=== PATIENT | male | born 1955 | race Caucasian/White ===

== ENCOUNTER 2017-11-21 18:42 | Emergency (ER) | payer OTHER ==
[2017-11-21] MEDS ORDERED: Adacel (T-DAP) 0.5 ML VIAL ONE (19:31)
[2017-11-21] MEDS ORDERED: Lidocaine 1% (PF) 30 ML VIAL ONE (19:36)
[2017-11-21] MEDS ORDERED: Bacitracin Zinc 1 Packet ONE (19:36)
[2017-11-21] MEDS ORDERED: Ketorolac Tromethamine 30 MG/ML VIAL ONE (19:39)
== END 2017-11-21 21:26 | disposition home or self-care (01) ==
LOC: ERS 18:42
DX: S61.412A Laceration without foreign body of left hand, initial encounter (principal); N40.0 Benign prostatic hyperplasia without lower urinary tract symptoms; E78.5 Hyperlipidemia, unspecified; I10 Essential (primary) hypertension; Z79.899 Other long term (current) drug therapy; W26.1XXA Contact with sword or dagger, initial encounter
CPT/HCPCS: 12002; 90471; 90715; 96372; J1885; J2001

== ENCOUNTER → 2017-11-26 | Day surgery (SDC) | payer OTHER ==
[~2017-11-26] MED LIST: Bacitracin Zinc Ointment 30 gm TUBE ONE; Betamet Acet/Betamet Na Ph 30 MG/5 ML VIAL ONE; Bupivacaine PF 0.5% 30 ML VIAL ONE; Clindamycin/D5W 600 mg/50 ml Premix Bag ONE; Dexamethasone 20 MG/5 ML VIAL ONE; Fentanyl 250 MCG/5 ML VIAL ONE; HYDROcodone/Acetaminophen 5/325 mg Tablet ONE; Lidocaine 1% PF 5 ML VIAL ONE; Midazolam HCl 2 mg/2 ml Vial ONE; PROPOFOL 200 MG/20 ML VIAL ONE; Sodium Chloride 0.9% 10 ML ONE
[2017-11-26 17:35] LABS: #Eosinphils 0.1 thou/uL (0.0-0.7); #Monocytes 0.6 thou/uL (0.11-0.59); #Neutrophils 2.9 thou/uL (1.40-6.50); %Basophils 0.2 % (0.0-1.0); %Eosinophils 2.8 % (0.0-10.0); %Lymphocytes 21.3 % (21.0-51.0); %Monocytes 13.5 % (0.0-10.0); %Neutrophils 62.3 % (42.0-75.0); Hemoglobin 14.5 g/dL (14.0-18.0); Mean Corpuscular HGB CONC 33.6 g/dL (32.0-36.0); Mean Corpuscular Hemoglobin 32.3 pg (27.0-31.0); Mean Corpuscular Volume 96.2 fl (80.0-94.0); Mean Platelet Volume 8.2 fL (7.4-10.4); Platelet Count 74 thou/uL (130-400); RBC Distribution Width 14.8 % (11.5-14.5); Red Blood Cell (RBC) Count 4.49 mill/uL (4.70-6.10); White Blood Cell (WBC) Count 4.7 thou/uL (4.8-10.8)
--- NOTE | 2017-11-27 13:51 | OP ---
DATE OF PROCEDURE: 11/26/2017 PREOPERATIVE DIAGNOSES: 1. Left fifth pollicis longus laceration. 2. Left extensor pollicis brevis laceration. FINDINGS: 1. 100% extensor pollicis brevis laceration with minimal retraction. 2. 25% extensor pollicis longus laceration without retraction. PROCEDURES PERFORMED: 1. Debridement of wound with the following techniques: A. Ashe blade, tenotomy scissors, Adson's. B. Excision technique. C. Depth down to and including deep dermis subcutaneous tissue and fascia. D. No gross wound necrosis, including no wound edge necrosis or infection or hematoma. 2. Extensor pollicis longus left wrist, 25%. 3. Extensor pollicis brevis laceration 100%. INDICATION: The patient reports he was involved in sword play, was passing the sword by one side by the other and caught it on his left nondominant arm. He immediately noted poor ability to extend his thumb. He then sought attention at local emergency room where they irrigated the wound, saw the ten don laceration, closed it with Prolene, put him on antibiotics, braced it and referred him to us to enhance therapy. By the time, he reached us, he was already out 10 days post-injury, so we felt that we needed to act on this tenderness as soon as possible before out of the field creating incr eased morbidity procedure. SURGEON: Micheal Lieberman M.D. TOURNIQUET TIME: 20 minutes. ESTIMATED BLOOD LOSS: 20 mL. DESCRIPTION OF PROCEDURE: After successful general endotracheal anesthesia, the limb was prepped and draped. The previous 4 cm incision was extended 1.5 cm proximal and 2 cm distal to be completely ev aluated tendons. Extensor pollicis brevis was already visualized and was cut in line with its fibers distally and then we also saw that the extensor pollicis longus had a 25% laceration on the radial s demetrius or the side along the side of extensor pollicis brevis. We debrided the tendon then appropriately, then we closed with interrupted [id number] buried Pro nico suture x2 and extensor pollicis longus tendon and then x4 pollicus brevis tendon buried wi th the knot inside the repair. We then cleaned the wound, and noticed that the patient had no gross particles, so we released the tourniquet, obtained hemostasis, closed incision with a running 3-0 nyl on and the patient left the operating room without evidence of anesthetic or operative complication. The patient then had the buried [id number] completely tied, the sutures were cut, there was no gap formation with flexion, extension of the distal phalanx/interphalangeal joint or the middle phala nx/metacarpophalangeal joint. With the tourniquet deflated, we obtained hemostasis. We closed the w ound with a combination of interrupted 4-0 Monocryl buried as well as interrupted 4-0 nylon mattress pattern. A 15 mL of 0.5% Marcaine and injected audrey-incisional. Hemostasis was excellent. The thum b had extension and he left the operating room without evidence of anesthetic or operative comp lication.
== END ==
LOC: SDC 16:37
PROVIDERS: ATTEND Orthopaedic Surgery Hand Surgery
PROC: 0KQB0ZZ Repair Left Lower Arm and Wrist Muscle, Open Approach (ICD-10-PCS; principal; 2017-11-26)
DX: S56.522A Laceration of other extensor muscle, fascia and tendon at forearm level, left arm, initial encounter (principal); K50.90 Crohn's disease, unspecified, without complications; I10 Essential (primary) hypertension; E78.5 Hyperlipidemia, unspecified; Z79.52 Long term (current) use of systemic steroids; Z79.4 Long term (current) use of insulin; Z79.2 Long term (current) use of antibiotics; Z79.899 Other long term (current) drug therapy; Z88.0 Allergy status to penicillin; Z88.6 Allergy status to analgesic agent
CPT/HCPCS: 85025; 96374; A4216; J0702; J1100; J2001; J2250; J2704; J3010; J3490; S0020

== ENCOUNTER 2018-08-14 06:01 | Day surgery (SDC) | payer OTHER ==
[2018-08-13 11:01] VITALS: BMI 24.3
[2018-08-14] MEDS ORDERED: Bupivacaine PF 0.5% 30 ML VIAL ONE (06:37)
[2018-08-14] MEDS ORDERED: Bacitracin Zinc Ointment 30 gm TUBE ONE (06:37)
[2018-08-14] MEDS ORDERED: Betamet Acet/Betamet Na Ph 30 MG/5 ML VIAL ONE (06:37)
[2018-08-14 06:40] LABS: #Eosinphils 0.2 thou/uL (0.0-0.7); #Lymphocytes 1.4 thou/uL (1.20-3.40); #Monocytes 0.5 thou/uL (0.11-0.59); #Neutrophils 2.2 thou/uL (1.40-6.50); %Eosinophils 3.8 % (0.0-10.0); %Lymphocytes 32.3 % (21.0-51.0); %Monocytes 11.9 % (0.0-10.0); %Neutrophils 51.1 % (42.0-75.0); Mean Corpuscular HGB CONC 35.2 g/dL (32.0-36.0); Mean Corpuscular Hemoglobin 30.7 pg (27.0-31.0); Mean Corpuscular Volume 87.1 fL (78.0-98.0); Mean Platelet Volume 8.5 fL (7.4-10.4); Platelet Count 64 thou/uL (130-400); RBC Distribution Width 13.5 % (11.5-14.5); Red Blood Cell (RBC) Count 4.57 mill/uL (4.70-6.10); White Blood Cell (WBC) Count 4.4 thou/uL (4.8-10.8)
[2018-08-14] MEDS ORDERED: Midazolam HCl 2 mg/2 ml Vial ONE (06:52)
[2018-08-14] MEDS ORDERED: Fentanyl 100 MCG/2 ML VIAL ONE ×2 (06:54→08:44)
[2018-08-14] MEDS ORDERED: Clindamycin/D5W 600 mg/50 ml Premix Bag ONE (07:11)
[2018-08-14] MEDS ORDERED: Ketorolac Tromethamine 30 MG/ML VIAL ONE ×2 (09:01→12:56)
[2018-08-14] MEDS ORDERED: Dexamethasone 20 MG/5 ML VIAL ONE (12:56)
[2018-08-14] MEDS ORDERED: Ondansetron PF 4 MG/2 ML Vial ONE (12:56)
[2018-08-14] MEDS ORDERED: PROPOFOL 200 MG/20 ML VIAL ONE (12:56)
[2018-08-14] MEDS ORDERED: Lidocaine 1% PF 5 ML VIAL ONE (12:56)
--- NOTE | 2018-08-14 15:34 | OP ---
DATE OF PROCEDURE: 08/14/2018 PREOPERATIVE DIAGNOSIS: Left thumb dorsal and palmar granuloma. POSTOPERATIVE DIAGNOSES: 1. Left thumb dorsal granuloma 3 mm. 2. 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 3. Giant cell tumor scar bed over the digital nerve, ulnar aspect of the thumb requiring digital neuroplasty. PROCEDURES PERFORMED: 1. Incisional biopsy of dorsal thumb granuloma 3 mm. 2. Incisional biopsy of palmar thumb giant cell tumor 7 to 8 mm. 3. Ulnar nerve neuroplasty, thumb digital nerve. Celestone technique 3 mL into the palmar wound. SPECIMENS: Listed above. TOURNIQUET TIME: 9 minutes. ESTIMATED BLOOD LOSS: 5 mL. INDICATIONS FOR PROCEDURE: Painful areas over the incision and over the palmar aspect of the thumb. DESCRIPTION OF PROCEDURE: After successful LMA technique, the limb was prepped and draped. The patient then had total of 10 mL given, 5 mL in each incision dorsal and palmar, separate from each other with 0.5% Marcaine. The limb was exsanguinated. Tourniquet inflated to 250 mmHg pressure. Then, we made an incision dorsally, centered on the mass. Then, went slightly ulna, found the mass. It was contiguous with the skin as a granuloma. We incised the skin with the mass of 3 mm and sent this specimen to the lab. We then made a Jose type incision centered over the 8 mm palmar mass right at the A1 milagro and the crease of the volar thumb flexion crease. Carried this to the skin and subcutaneous tissue. We then dissected the mass off some scar tissue and in the scar bed, there was the ulnar digital nerve branch. We had to do a formal neuroplasty to separate the nerve from the base of the tumor. Once this was done, we were then able to excise the tumor from the skin, taking approximately 8 mm mass along with 2 to 3 mm of the skin. We released the tourniquet after obtaining hemostasis. technique 3 mL of Celestone in the palmar wound, closed both wounds separately with interrupted 4-0 nylon in a simple pattern. Bulky dressing was applied to soft tissue only with Joel wrap, and the patient left the operating room without evidence of anesthetic complications. Job ID: [id number]
--- NOTE | 2018-08-21 05:04 | PQF ---
[facility] POST DISCHARGE CLINICAL DOCUMENTATION IMPROVEMENT CLARIFICATION FORM l Todays Date: 08/20/18 l Patients Name CALOS BARBER l l Admit Date 08/14/18 l Disch Date 08/14/18 Information Technology Account Manager Name Temi Loreta Lu Email: @[email or web address] Cell: [phone] To be completed by Information Technology Account Manager: Present Clinical Indicators - Signs / Symptoms Results and Location in Medical Record [ ] Documentation of: [ ] [ ] Documentation of: [ ] [ ] Documentation of: [ ] [ ] Documentation of: [ ] [ ] Risks [ ] [ ] [ ] Treatment [ ] EXCISION OF THUMB GRANULOMA QUERY FOR SIZE OF EXCISED LESION WITH MARGINS [ ] [ ] To be completed by Physician: DR. NATAN GOLDMAN The documentation in this patients record requires clarification to ensure coding compliance and accuracy. Check the appropriate box and include in your discharge summary. [ ] [ ] [ ] [ ] Please check this box if this does not apply to this patient [ ] Unable to determine [ ] Other diagnosis: Review the following information and exercise your independent professional judgment in responding to the clarification. Based upon the clinical findings, risk factors, and treatment, please clarify if you are treating one of the above probable or suspected diagnoses. Physician Signature: Date Time ELIDAD
== END 2018-08-14 10:22 | disposition home or self-care (01) ==
LOC: SDC 06:01
PROVIDERS: ATTEND Orthopaedic Surgery Hand Surgery
PROC: 0HBGXZZ Excision of Left Hand Skin, External Approach (ICD-10-PCS; principal; 2018-08-14)
PROC: 01Q40ZZ Repair Ulnar Nerve, Open Approach (ICD-10-PCS; principal; 2018-08-14)
PROC: 0JBK0ZZ Excision of Left Hand Subcutaneous Tissue and Fascia, Open Approach (ICD-10-PCS; principal; 2018-08-14)
DX: L57.8 Other skin changes due to chronic exposure to nonionizing radiation (principal); D48.7 Neoplasm of uncertain behavior of other specified sites; I10 Essential (primary) hypertension; E78.5 Hyperlipidemia, unspecified; Z79.899 Other long term (current) drug therapy; Z88.0 Allergy status to penicillin
CPT/HCPCS: 85025; 88305; 96372; 96374; J0702; J1100; J1885; J2001; J2250; J2405; J2704; J3010; J3490; S0020

== ENCOUNTER 2020-05-24 14:03 | Outpatient (CLI) | payer BC ==
--- NOTE | 2020-05-24 14:50 | RAD ---
XR Chest Pa Lat STANDARD HISTORY: Cough COMPARISON: 08/04/2016 FINDINGS: The heart size is normal. The lungs are well expanded without focal areas of consolidation, pneumothorax or pleural effusions. IMPRESSION: No radiographic evidence of acute cardiopulmonary process.
== END 2020-05-24 14:04 | disposition home or self-care (01) ==
LOC: RAD-FRANK 14:03
PROVIDERS: ATTEND Nurse Practitioner Family
DX: R05 Cough (principal)
CPT/HCPCS: 71046

== ENCOUNTER 2020-08-10 09:42 | Inpatient (IN) | payer BC ==
--- NOTE | 2020-08-10 10:27 | CT ---
CT BRAIN WITHOUT CONTRAST: Date: 08/10/2020 HISTORY: Altered mental status. COMPARISON: 04/08/2010. FINDINGS: No evidence of acute infarct, hemorrhage, midline shift, or abnormal extra-axial fluid collections ar e seen. The ventricular size is appropriate and the basilar cisterns are patent. The bony calvarium i s intact. There is mucosal disease in the paranasal sinuses. IMPRESSION: No CT evidence of acute intracranial process. POS: AH
--- NOTE | 2020-08-10 10:38 | RAD ---
RADIOGRAPH CHEST 1 VIEW: DATE: 08/10/2020 HISTORY: 64 year old male with altered mental status. Concern for aspiration. FINDINGS: There are no airspace densities, pulmonary edema, pneumothorax, or cardiomegaly. The lateral costophr enic angles are sharp. IMPRESSION: No acute cardiopulmonary findings.
[2020-08-10 10:39] LABS: Acetaminophen Less than 6.0 mcg/mL (10.0-30.0); Alcohol Less than 10 mg/dL (Less than 10); Salicylate Less than 8.0 mg/dL (15.0-30.0)
[2020-08-10 10:40] LABS: ALT (SGPT) 35 U/L (8-55); AST (SGOT) 37 U/L (5-34); Albumin 3.8 g/dL (3.4-4.8); Alkaline Phosphatase 84 U/L (40-110); Anion Gap 14 mmol/L (10-20); BUN (Urea Nitrogen) 12 mg/dL (8.4-25.7); Bilirubin, Total 1.4 mg/dL (0.2-1.2); CK (CPK) 173 U/L (30-200); Calc. Creatinine Clearance 0 mL/min (70-130); Calcium 8.8 mg/dL (7.8-10.44); Carbon Dioxide 23 mmol/L (23-31); Chloride 107 mmol/L (98-107); Globulin 3.6 g/dL (2.4-3.5); Glucose 131 mg/dL (80-115); Lipase 20 U/L (8-78); Potassium 3.6 mmol/L (3.5-5.1); Protein, Total 7.4 g/dL (5.8-8.1); Sodium 140 mmol/L (136-145)
[2020-08-10 11:08] LABS: #Basophils 0.1 thou/uL (0.0-0.2); #Monocytes 0.5 thou/uL (0.11-0.59); #Neutrophils 4.5 thou/uL (1.40-6.50); %Basophils 1.4 % (0.0-1.0); %Eosinophils 0.8 % (0.0-10.0); %Lymphocytes 16.2 % (21.0-51.0); %Monocytes 8.5 % (0.0-10.0); %Neutrophils 73.2 % (42.0-75.0); Hemoglobin 12.1 g/dL (14.0-18.0); MDiff Complete? YES; Mean Corpuscular HGB CONC 32.9 g/dL (32.0-36.0); Mean Corpuscular Hemoglobin 28.4 pg (27.0-31.0); Mean Corpuscular Volume 86.2 fL (78.0-98.0); Mean Platelet Volume 9.2 fL (7.4-10.4); Ovalocytes SLIGHT = 2-5 cells (100X) (0-1/hpf); Platelet Count 62 thou/uL (130-400); Platelet Morphology Comment Appears Decreased; Polychromasia SLIGHT = 2-3 cells (100X) (0-2/hpf); RBC Distribution Width 15.5 % (11.5-14.5); Red Blood Cell (RBC) Count 4.28 mill/uL (4.70-6.10); White Blood Cell (WBC) Count 6.1 thou/uL (4.8-10.8)
[2020-08-10] MEDS ORDERED: Lorazepam 2 MG/ML VIAL ONE (11:18)
[2020-08-10 11:25] LABS: Bilirubin Negative (Negative); Blood, Urine Negative (Negative); Clarity Clear (Clear); Glucose, Urine (Dipstick) Normal (Negative); Ketone, Urine Negative (Negative); Leukocyte Negative Leu/uL (Negative); Nitrite Negative (Negative); Protein, Urine (Dipstick) 20 mg/dL (Neg-Trace); Specific Gravity, Urine 1.018 (1.002-1.036); Urobilinogen Normal mg/dL (Less than 2); pH, Urine 6.5 (5.0-9.0)
[2020-08-10 11:34] LABS: Amphetamine Not Detected (NotDetected); Cocaine Metabolite Screen Not Detected (NotDetected); Medtox Reader # READER 4; Methamphetamine Not Detected (NotDetected); Opiate Screen Not Detected (NotDetected); Phencyclidine (PCP) Not Detected (NotDetected); THC/Cannabinoid Screen Not Detected (NotDetected)
[2020-08-10 11:35] LABS: Barbiturates Screen Not Detected (NotDetected); Benzodiazepine Screen Detected (NotDetected); Medtox Control Line Valid? VALID (VALID); Methadone Not Detected (NotDetected); Oxycodone Screen Not Detected (NotDetected); Tricyclic Screen Detected (NotDetected)
[2020-08-10] MEDS ORDERED: Sodium Chloride 0.9% 1,000 ML IV SCH (12:00)
--- NOTE | 2020-08-10 13:30 | HP ---
PRESENTING COMPLAINTS: Altered mentation. HISTORY OF PRESENT ILLNESS: This is a 64-year-old male gentleman, who was brought in today by the patient's because the patient was behaving oddly since this morning and concerning for problems related to medications that he was recently prescribed. The patient was brought to the emergency room at [facility]. The patient on my evaluation at his bedside in the emergency room is alert, awake, but unfortunately, he is not oriented and does respond to verbal stimuli and majority part of the time he is confused. I reviewed with the patient's , who was present at bedside in regard to the patient's past medical history, and according to her, the patient has history of Crohn disease, follows up with a supervisor of guidance and testing at [facility] in [place] and also had multiple surgeries with colectomy for the same many years ago, and the patient does take Humira for his Crohn disease. The patient's is not aware that the patient has cirrhosis of liver, and on initial evaluation in the emergency room, the patient's ammonia level was 120. Other past medical history includes benign essential hypertension, hyperlipidemia. I have seen his past history and physicals in the hospital, and there was presence of fibrosis of liver along with splenomegaly and they are being followed up in [facility]. According to the except for presence of altered mentation, no other complaints of chest pain, shortness of breath, fever, rigors, chills, nausea, vomiting, diaphoresis, blurring of vision, tingling, numbness, burning micturition, constipation, claudication, anxiety, depression, hematuria, hematochezia, cough, expectoration, syncope, seizures, PND have been noted. PAST MEDICAL HISTORY: Includes; 1. Crohn disease. 2. Cirrhosis of liver. 3. Splenomegaly. 4. Benign essential hypertension. PAST SURGICAL HISTORY: Includes extensive bowel resection for Crohn disease. ALLERGIES: PENICILLINS. SOCIAL HISTORY: The patient does not smoke or abuse drugs. Socially drinks. FAMILY HISTORY: Significant for Crohn disease in his sister, who recently from complications of the same. MEDICATIONS: At home; 1. Humira. 2. Amitriptyline 10 mg at bedtime. 3. Lisinopril 10 mg daily. 4. Pantoprazole 40 mg daily. 5. The patient takes tramadol p.r.n. and some antiemetics. REVIEW OF SYSTEMS: Except as documented, all systems reviewed and negative. PHYSICAL EXAMINATION: GENERAL: This is a 64-year-old male gentleman, who is lying on his hospital bed with altered mentation. VITAL SIGNS: He has a heart rate of 113 per minute and sinus tachycardia, blood pressure of 130/68 mmHg, respiratory rate of 16 per minute, has an airway which is clear. HEENT: Atraumatic, normocephalic. NECK: Supple. No bruit. No lymphadenopathy. CVS: S1, S2. No abnormal rhythms except for sinus tachycardia. CHEST: Bilateral air entry present. No rhonchi. No wheeze. ABDOMEN: Soft, nontender. Bowel sounds are present. EXTREMITIES: No cyanosis. No edema. NEUROLOGIC: The patient is alert. Unfortunately, he is confused. No new motor deficits noted. HEME: No ecchymosis or petechiae noted. PSYCH: Unable to evaluate. DIAGNOSTIC DATA: WBC 6.1, hemoglobin 12.1, hematocrit 36.9, platelets are 62. Sodium 140, potassium 3.6, chloride 107, carbon dioxide is 23, BUN is 12, creatinine 0.86, total bilirubin is 1.4, AST 37, ALT 35, ammonia level is 120. Urinalysis has been reviewed. Toxicology screen has been reviewed. The patient is positive for benzodiazepines and tricyclics. CT of the brain, normal. Chest x-ray, no acute cardiopulmonary findings noted. ASSESSMENT: 1. Acute hepatic encephalopathy with elevated ammonia levels. The patient is not on lactulose at home, for which he has been started here on lactulose q.i.d. and closely monitor along with consulting Gastroenterology Services as the patient's family wants him to have a supervisor of guidance and testing nearby in [place]. 2. History of Crohn disease, for which the patient takes Humira as prescribed by his supervisor of guidance and testing at [facility]. 3. History of multiple colectomies for Crohn disease. 4. Benign essential hypertension, on lisinopril. 5. History of cirrhosis of liver, likely causing the patient's current hepatic encephalopathy. The patient will be on long-term lactulose at this point of time, and if needed, Rifaximin will be added. 6. Acute metabolic encephalopathy, likely hepatic in origin. 7. Thrombocytopenia, which is likely secondary to cirrhosis of liver. PLAN: Discussed in detail about the diagnosis, treatment, and followup with the patient as well as his in regard to plan of care with lactulose. We will obtain Gastroenterology evaluation for outpatient followup for Crohn disease as well as cirrhosis of liver. The patient is currently not on transplant list according to the patient's . The patient has to be on long-term lactulose use and at this point of time, he is currently on 20 g q.i.d. We will follow ammonia levels every day. No early ambulation once the patient is more alert and oriented. DVT prophylaxis with SCDs. Unfortunately, we cannot do any anticoagulation with chemicals because of low platelets and cirrhosis of liver. Fall risk is also there for the patient. Advanced directive are full code. We will follow official consultation evaluation by Dr. Ramesh Dawn, Gastroenterology. Job ID: [id number] [facility]
[2020-08-10 14:29] LABS: Troponin I 0.036 ng/mL (< 0.028)
--- NOTE | 2020-08-10 14:49 | CON ---
NEUROLOGY CONSULTATION DATE OF CONSULTATION: 08/10/2020 REASON FOR CONSULTATION: Altered mental status. HISTORY OF PRESENT ILLNESS: Mr. Daniel is a 64-year-old male with medical history significant for Crohn disease, cirrhosis of the liver, splenomegaly, and benign essential hypertension, presented to the emergency room with altered mental status for the last 5 days. The patient was brought to the hospital by his . According to the , he has been extremely confused for the last 5 days and has not been eating or drinking and it was difficult for him to walk or perform the activities of daily living. Per , he has history of Crohn disease and has followed up with primer powder blender wet at [facility] in [place]. He has multiple surgeries including colectomy and he has been on Humira per . Per , he had some procedure and he took a medicine and since then he has been acting confused. She does not known the name of the medicine. He also has cirrhosis of the liver and ammonia level was 120. The was not aware of the diagnosis of cirrhosis. Per , he has no focal weakness, focal paresthesias, nausea, vomiting, headache, chest pain, abdominal pain, recent illness or recent exposure to COVID. She does admit that he has generalized weakness, shaking, and altered mental status for the last 5 days. REVIEW OF SYSTEMS: Per , all systems reviewed and were negative except the pertinent positives and negatives mentioned in the HPI. PAST MEDICAL HISTORY: Crohn disease, cirrhosis of the liver, splenomegaly, hypertension. PAST SURGICAL HISTORY: Extensive bowel resection for Crohn disease. FAMILY HISTORY: Crohn disease in the sister, who from the complications of Crohn disease. ALLERGIES: N HOME MEDICATIONS: 1. Humira. 2. Amitriptyline. 3. Lisinopril. 4. Pantoprazole. 5. Tramadol. PHYSICAL EXAMINATION: VITAL SIGNS: Blood pressure 130/68, pulse 80, respiratory rate 18. GENERAL: A 64-year-old male, who is extremely somnolent and confused. CVS: Regular rate and rhythm. CHEST: Clear. ABDOMEN: Soft. NECK: Supple. NEUROLOGIC: Mental status, the patient is alert, awake, and knows his name, but he does not follow commands, he does not maintain eye contact. He is confused at baseline. Motor; muscle tone is somewhat increased, bulk is normal. Moving all 4 extremities equally and symmetrically. Sensory, withdraws to nailbed pressure bilaterally. Cranial nerves; pupils 4 mm, round and reactive to light. Face symmetric. Tongue midline. Moves neck in both directions. Hearing seems to be intact. Cerebellar, did not cooperate with the testing. Gait deferred due to the patient's safety reason. DATA REVIEWED: I reviewed the labs, which showed hyperammonemia at 120. Also CT scan of the brain, which was negative for acute intracranial process. CT chest was also unremarkable. X-ray of the chest was also unremarkable. ASSESSMENT AND PLAN: Mr. Daniel is a 64-year-old male, who presented with altered mental status. Altered mental status seems to be multifactorial secondary to metabolic encephalopathy due to hyperammonemia; however, intracranial process cannot be completely ruled out. Consider MRI of the brain to assess for acute intracranial process. EEG to rule out seizure activity. Neuro checks every 4 hours. N.p.o. until cleared by Speech. DVT prophylaxis. Continue medical management per primary team and consider Gastroenterology input regarding Crohn disease. Further recommendations will depend on the results of the testing. We will continue to follow. Plan discussed with the nursing staff and at bedside. Thank you for the consult. Job ID: [id number] [facility]
[2020-08-10 15:28] VITALS: BMI 23.9
[2020-08-10 17:24] LABS: Troponin I 0.038 ng/mL (< 0.028)
[2020-08-10 19:05] LABS: SARS-CoV-2 MS2 Positive; SARS-CoV-2 N Gene Negative; SARS-CoV-2 S Gene Negative; SARS-CoV-2 by NAA Not Detected (NotDetected); SARS-CoV-2 orf1ab Negative
[2020-08-10] MEDS ORDERED: hydrALAZINE 20 MG/ML VIAL SLOW IVP PRN (20:13)
[2020-08-10] MEDS ORDERED: Promethazine 25 MG TAB PO PRN (20:44)
[2020-08-10] MEDS ORDERED: SUMAtriptan Succinate 50 MG TAB PO PRN (20:46)
[2020-08-10] MEDS ORDERED: Lorazepam 1 MG TAB PO PRN (20:51)
[2020-08-10] MEDS ORDERED: Loperamide HCl 2 MG CAP PO PRN (20:57)
[2020-08-10] MEDS ORDERED: TADALAFIL 20 MG PO PRN (20:58)
[2020-08-10] MEDS ORDERED: Cyanocobalamin 1000 MCG/ML VIAL IM SCH (21:00)
[2020-08-10] MEDS ORDERED: Amitriptyline HCl 25 MG TAB PO SCH (21:00)
[2020-08-10] MEDS: traMADol HCl 50 MG TAB PO PRN (23:26)
[2020-08-10] MEDS: Thiamine 100 MG TAB PO SCH (23:27)
[2020-08-10] MEDS: Sucralfate 1 GM TAB PO SCH (23:27)
--- NOTE | 2020-08-11 00:19 | CON ---
DATE OF CONSULTATION: 08/10/2020 CHIEF COMPLAINT: Altered mental status. HISTORY OF PRESENT ILLNESS: Mr. Daniel is a 64-year-old man, who was admitted to the emergency room today with altered mental status. He has a history of Crohn disease and is on immunosuppression for that. He has a history of cirrhosis of the liver, but has had no prior episodes of encephalopathy. About a week ago, he started having some confusion. This got better for a day, but then has persisted and today worsened, so his brought him on in the emergency room. He has had no nausea, vomiting, diarrhea, constipation, or blood in the stool preceding this. No known dehydration or changes in his medications acutely. He has had no weight changes. The patient is sleeping and does not contribute to the history. He wakes up briefly and answers what his name is, but otherwise is not interactive. His reports that he had a liver biopsy a couple of years ago that showed cirrhosis. Since then, every time he returns to his evp general counsel in [place], he is told that he needs to quit drinking, however, he has continued drinking. She states he only drinks two beers per day; however, he has been unable to stop and it is possible he is drinking significantly more. He has had no prior history of encephalopathy or variceal bleeding. No prior known ascites. He also has a history of Crohn disease, which was diagnosed around age 19. He had bowel resection at that time. He had another bowel resection around age 27. He was treated with Imuran in the past. It is unknown if he was treated with methotrexate. He started Remicade around 2000, but then shortly after starting that medication, developed multiple abscesses in his abdomen and required surgery and was in the hospital for four months. He was on TPN during that time. Sometime over the next couple of years after that or so, he was started on Humira and has remained on Humira ever since and has done well from a Crohn standpoint on this medication. About a month ago or so, he started having some trouble swallowing and felt like his food would get stuck in his chest when he would swallow. He underwent EGD two weeks ago and had esophageal dilation performed, which helped that symptom. He also had a colonoscopy then. does not know whether or not varices were present at the time of endoscopy. He has been started on lactulose in the hospital and is slow to wake up. PAST MEDICAL HISTORY: Crohn disease, cirrhosis likely secondary to alcohol; however, this has apparently been evaluated extensively and he has had a liver biopsy. We will request the records regarding that. Portal hypertension with splenomegaly and thrombocytopenia, hypertension. Skin cancer and also progressive loss of vision. PAST SURGICAL HISTORY: Bowel resection at age 19 and then at age 27 and then multiple abdominal surgeries for abscesses around 2000. He just had EGD and colonoscopy two weeks ago in [place]. FAMILY HISTORY: Positive for Crohn disease. SOCIAL HISTORY: No drugs or smoking. He at least drinks two beers daily. ALLERGIES: PENICILLIN. MEDICATIONS: Prior to admission: 1. Humira. 2. Amitriptyline. 3. Lisinopril. 4. Pantoprazole. REVIEW OF SYSTEMS: Unobtainable as the patient is not communicative and sleepy. PHYSICAL EXAMINATION: VITAL SIGNS: Temperature 98.4, pulse 113, blood pressure 177/103. General: He is in no acute distress. He is sleepy, but does arouse to verbal stimulus. HEENT: Eyes have no scleral icterus. Oropharynx is clear without lesions. No cervical or supraclavicular lymphadenopathy. LUNGS: Clear to auscultation bilaterally. HEART: Regular rate and rhythm without murmur. NEUROLOGICAL: Positive for asterixis. ABDOMEN: Soft, nontender, and nondistended. Bowel sounds are present. He has a midline abdominal scar. EXTREMITIES: No lower extremity edema. LABORATORY DATA: Creatinine 0.86, bilirubin 1.4, AST 37, ALT 35, alkaline phosphatase 84, albumin 3.8, lipase 20. White blood cell count 6.1, hemoglobin 12.1, platelets 62. Ammonia was 120. IMPRESSION: 1. Hepatic encephalopathy. He has asterixis, is sleepy, and his ammonia is elevated. He has been started on lactulose. I will add Xifaxan. The lactulose should be titrated to achieve four soft stools per day. We will give him an extra dose this evening. 2. Cirrhosis of the liver, most likely secondary to alcohol. However, this has been worked up all the way to include liver biopsy in [place]. I will request those records rather than repeating all the usual lab workup. 3. Crohn disease. He has been treated with Humira with good control of his disease. However, prior to starting Humira, he is required bowel resections and prolonged hospitalizations for intraabdominal abscess. 4. Dysphagia. He had an EGD recently with esophageal dilation. 5. Hepatoma screening. He should undergo ultrasound every six months and alpha-fetoprotein. He has been following with GI at [facility] in [place] for routine management of his liver and Crohn's. Again, we can obtain records regarding that rather than duplicating workup. RECOMMENDATIONS: 1. Lactulose. 2. Xifaxan. 3. Request records from GI in [place] including liver biopsy and endoscopies and pathology. Job ID: [id number]
[2020-08-11 05:15] LABS: #Basophils 0.1 thou/uL (0.0-0.2); #Eosinphils 0.1 thou/uL (0.0-0.7); #Lymphocytes 2.3 thou/uL (1.20-3.40); #Monocytes 0.9 thou/uL (0.11-0.59); #Neutrophils 7.7 thou/uL (1.40-6.50); %Basophils 0.7 % (0.0-1.0); %Eosinophils 1.2 % (0.0-10.0); %Lymphocytes 20.3 % (21.0-51.0); %Monocytes 8.4 % (0.0-10.0); %Neutrophils 69.4 % (42.0-75.0); Hemoglobin 13.4 g/dL (14.0-18.0); Mean Corpuscular HGB CONC 33.5 g/dL (32.0-36.0); Mean Corpuscular Hemoglobin 28.3 pg (27.0-31.0); Mean Corpuscular Volume 84.4 fL (78.0-98.0); Mean Platelet Volume 8.8 fL (7.4-10.4); Platelet Count 85 thou/uL (130-400); RBC Distribution Width 15.6 % (11.5-14.5); Red Blood Cell (RBC) Count 4.73 mill/uL (4.70-6.10); White Blood Cell (WBC) Count 11.1 thou/uL (4.8-10.8)
[2020-08-11 05:25] LABS: ALT (SGPT) 37 U/L (8-55); AST (SGOT) 44 U/L (5-34); Albumin 3.9 g/dL (3.4-4.8); Alkaline Phosphatase 91 U/L (40-110); Anion Gap 15 mmol/L (10-20); BUN (Urea Nitrogen) 14 mg/dL (8.4-25.7); Bilirubin, Total 2.4 mg/dL (0.2-1.2); Calc. Creatinine Clearance 75 mL/min (70-130); Calcium 9.2 mg/dL (7.8-10.44); Carbon Dioxide 22 mmol/L (23-31); Chloride 107 mmol/L (98-107); Globulin 3.7 g/dL (2.4-3.5); Glucose 125 mg/dL (80-115); Potassium 3.4 mmol/L (3.5-5.1); Protein, Total 7.6 g/dL (5.8-8.1); Sodium 141 mmol/L (136-145)
[2020-08-11] MEDS ORDERED: FLUOROMETHOLONE EA EYE SCH (09:00)
[2020-08-11] MEDS ORDERED: TADALAFIL 5 MG PO SCH (09:00)
[2020-08-11] MEDS: Rifaximin 550 MG TAB PO SCH ×2 (09:26→21:06)
[2020-08-11] MEDS: traMADol HCl 50 MG TAB PO PRN ×2 (09:26→21:06)
[2020-08-11] MEDS: Thiamine 100 MG TAB PO SCH (09:28)
[2020-08-11] MEDS: Folic Acid 1 MG TAB PO SCH (09:28)
[2020-08-11] MEDS: Finasteride 5 MG TAB PO SCH (09:28)
[2020-08-11] MEDS: Lisinopril 20 MG TAB PO SCH (09:28)
[2020-08-11] MEDS: Tamsulosin HCl 0.4 MG CAP PO SCH (09:28)
[2020-08-11] MEDS: Sucralfate 1 GM TAB PO SCH ×6 (09:28→21:06)
[2020-08-11] MEDS: Multivitamin W/ Minerals 1 TAB PO SCH (09:28)
[2020-08-11] MEDS: Loteprednol Etabonate 0.5% Ophth Suspension 5 ml Bottle EA EYE SCH (12:11)
[2020-08-11] MEDS: prednisoLONE 1% Ophth Susp 5 ml Bottle EA EYE SCH (12:12)
[2020-08-11 13:31] LABS: Troponin I 0.043 ng/mL (< 0.028)
--- NOTE | 2020-08-11 13:41 | PDOC.EEG ---
Neurology EEG Report - Report Report: This EEG was performed using 24 channel [employer] video digital EEG machine with 24 disc electrodes. This was an extended 2 hours 5 minutes of inpatient video EEG recording. Digital analysis of the EEG was done for Wilfrido and seizure detection which revealed no abnormalities. Background: The posterior background rhythm was not observed. Hyperventilation: Not performed. Photic stimulation: No significant response seen with photic stimulation. Sleep: No stage change was observed. EEG diagnosis: Generalized irregular theta activity seen throughout the recording. Absence of posterior background rhythm. Clinical interpretation: This EEG is consistent with moderate generalized nonspecific cerebral dysfunction.
--- NOTE | 2020-08-11 13:49 | PRG ---
DATE OF SERVICE: 08/11/2020 TIME OF SERVICE: 10:30 a.m. CONSULTATIONS ON THE CASE: 1. Dr. Rasheeda Mir, Neurology. 2. Dr. Ramesh Dawn, Gastroenterology. SUBJECTIVE: Patient seen and evaluated at bedside. The patient is more alert and awake today, though he does exhibit occasional confusion state with elevated ammonia levels of 143. OBJECTIVE: GENERAL: The patient is alert, awake. VITAL SIGNS: Temperature of 98.4 degrees Fahrenheit, heart rate of 116 per minute, respiratory rate of 18 per minute, saturation of 94% on room air, has a blood pressure of 157/85 mmHg. Has an airway which is clear. HEENT: Atraumatic, normocephalic. NECK: Supple. No bruit. No lymphadenopathy. CV: S1, S2. Sinus tachycardia noted. CHEST: Bilateral air entry present. No rhonchi. No wheeze. ABDOMEN: Soft, nontender. Bowel sounds are present. Slightly distended abdomen noted though without any evidence of significant ascites. EXTREMITIES: No cyanosis, no clubbing. NEUROLOGIC: The patient is alert, awake. No new motor deficits seen. HEME: No ecchymosis or petechiae. PSYCH: No depression. DIAGNOSTICS: WBC is 11.1, hemoglobin 13.4, hematocrit 40.0, platelets are 85. Sodium 141, potassium 3.4, chloride 107, carbon dioxide 22, BUN 14, creatinine 0.99. Troponins are 0.036 and 0.038. SARS-CoV-2 PCR analysis is negative. MEDICATIONS: 1. Flomax 0.4 mg daily. 2. Lactulose 20 g q.i.d. 3. Lisinopril 20 mg daily. 4. Rifaximin 550 mg b.i.d. 5. Amitriptyline 50 mg daily. 6. Lorazepam 0.5 p.r.n. 7. Hydralazine p.r.n. 8. Iron, mineral, multivitamin supplement daily. 9. Pantoprazole 40 mg daily. 10. Sucralfate 1 mg p.o. scheduled. ASSESSMENT: 1. Acute hepatic encephalopathy. Elevated ammonia levels noted and Gastrointestinal consultation has been appreciated. The patient currently on lactulose 20 g q.i.d. along with Rifaximin 550 mg b.i.d. 2. 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 3. History of benign essential hypertension, on lisinopril. 4. Cirrhosis of liver with current hepatic encephalopathy. 5. History of thrombocytopenia, likely secondary to cirrhosis of liver. 6. Elevated troponins, likely type 2 NSTEMI. We will do an echocardiogram evaluation to look at functional capacity of the patient's heart along with the consulting Cardiology services, so at this point of time, I think this is demand ischemia. 7. Sinus tachycardia. Closely monitor. PLAN: Discussed in detail of the diagnosis, treatment, and followup with the patient as well as the patient's advised about cardiology evaluation at this point of time for type 2 NSTEMI. We will also do echocardiogram evaluation and review. Advised the patient about new medications and long-term use of the same. Discharge planning will depend on further hospital course. Job ID: [id number]
--- NOTE | 2020-08-11 14:08 | PDOC.NEUPN ---
- Subjective Encounter Date: 08/11/20 Subjective: Mr. Shelton looks better today and more alert but still confused at baseline. He is oriented to his name only. - Objective Vital Signs & Weight: Vital Signs (12 hours) Temp Pulse Resp BP Pulse Ox 08/11/20 11:25 98.4 F 116 H 18 157/85 H 94 L 08/11/20 08:00 98.6 F 121 H 18 158/87 H 96 08/11/20 03:53 98.7 F 114 H 16 176/104 H 95 08/11/20 03:28 113 H Weight Admit Weight 153 lb Weight 153 lb I&O: 08/10/20 08/11/20 08/12/20 06:59 06:59 06:59 Intake Total 170 Output Total 425 Balance -255 Result Diagrams: 08/11/20 04:33 08/11/20 04:33 Radiology Reviewed by me: Yes EKG Reviewed by me: Yes ROS - Review of Systems ROS unobtainable: due to mental status - Medication Medications: Active Medications Generic Name Dose Route Start Last Admin Trade Name Freq PRN Reason Stop Dose Admin Amitriptyline HCl 50 mg 08/10/20 21:00 08/10/20 21:25 Amitriptyline Hcl 25 Mg Tab PO Not Given HS CHARISSE Finasteride 5 mg 08/11/20 09:00 08/11/20 09:28 Finasteride 5 Mg Tab PO 5 mg DAILY CHARISSE Administration Folic Acid 1 mg 08/11/20 09:00 08/11/20 09:28 Folic Acid 1 Mg Tab PO 1 mg DAILY CHARISSE Administration Hydralazine HCl 10 mg 08/10/20 20:13 08/11/20 03:28 Hydralazine 20 Mg/Ml Vial SLOW IVP 10 mg Q6H PRN Administration .SBP >160 Sodium Chloride 1,000 mls @ 0 mls/hr 08/10/20 12:00 08/10/20 16:52 Normal Saline 0.9% IV 1,000 mls .Q0M CHARISSE Administration KVO Iron/Minerals/Multivitamins 1 tab 08/11/20 09:00 08/11/20 09:28 Multivitamin W/ Minerals 1 Tab PO 1 tab DAILY CHARISSE Administration Lactulose 20 gm 08/10/20 13:00 08/11/20 12:37 Lactulose 20 Gm/30 Ml Udcup PO 20 gm QID CHARISSE Administration Lisinopril 20 mg 08/11/20 09:00 08/11/20 09:28 Lisinopril 20 Mg Tab PO 20 mg DAILY CHARISSE Administration Loteprednol Etabonate 1 drop 08/11/20 09:00 08/11/20 12:11 Loteprednol Etabonate 0.5% Ophth Suspension 5 Ml Bottle EA EYE Not Given DAILY CHARISSE Pantoprazole Sodium 40 mg 08/11/20 09:00 08/11/20 09:26 Pantoprazole 40 Mg Tab PO 40 mg DAILY CHARISSE Administration Prednisolone Acetate 1 drop 08/11/20 09:00 08/11/20 12:12 Prednisolone 1% Ophth Susp 5 Ml Bottle EA EYE Not Given DAILY [facility] Rifaximin 550 mg 08/11/20 09:00 08/11/20 09:26 Rifaximin 550 Mg Tab PO 550 mg BID CHARISSE Administration Sucralfate 1 gm 08/10/20 21:00 08/11/20 12:37 Sucralfate 1 Gm Tab PO 1 gm ACHS CHARISSE Administration Tamsulosin HCl 0.4 mg 08/11/20 09:00 08/11/20 09:28 Tamsulosin Hcl 0.4 Mg Cap PO 0.4 mg DAILY [facility] Administration Thiamine HCl 100 mg 08/10/20 22:00 08/11/20 09:28 Thiamine 100 Mg Tab PO 100 mg DAILY [facility] Administration Tramadol HCl 50 mg 08/10/20 20:47 08/11/20 09:26 Tramadol Hcl 50 Mg Tab PO 50 mg Q6H PRN Administration Pain - Exam General Appearance: awake alert Eye: PERRL ENT: normocephalic atraumatic Neck: supple Respiratory: CTAB Cardiovascular: RRR Gastrointestinal: soft Extremities: no cyanosis Skin: normal turgor Neurological: no new deficit Musculoskeletal: normal tone, no muscle wasting PSYCH: normal affect, normal behavior, oriented to person Results - Labs Result Diagrams: 08/11/20 04:33 08/11/20 04:33 Lab results: WBC 11.1 thou/uL (4.8-10.8) H 08/11/20 04:33 Hgb 13.4 g/dL (14.0-18.0) L 08/11/20 04:33 Hct 40.0 % (42.0-52.0) L 08/11/20 04:33 MCV 84.4 fL (78.0-98.0) 08/11/20 04:33 Plt Count 85 thou/uL (130-400) L 08/11/20 04:33 Neutrophils % 69.4 % (42.0-75.0) 08/11/20 04:33 Sodium 141 mmol/L (136-145) 08/11/20 04:33 Potassium 3.4 mmol/L (3.5-5.1) L 08/11/20 04:33 Chloride 107 mmol/L (98-107) 08/11/20 04:33 Carbon Dioxide 22 mmol/L (23-31) L 08/11/20 04:33 BUN 14 mg/dL (8.4-25.7) 08/11/20 04:33 Creatinine 0.99 mg/dL (0.7-1.3) 08/11/20 04:33 Glucose 125 mg/dL (80-115) H 08/11/20 04:33 Calcium 9.2 mg/dL (7.8-10.44) 08/11/20 04:33 Total Bilirubin 2.4 mg/dL (0.2-1.2) H 08/11/20 04:33 AST 44 U/L (5-34) H 08/11/20 04:33 ALT 37 U/L (8-55) 08/11/20 04:33 Alkaline Phosphatase 91 U/L (40-110) 08/11/20 04:33 Ammonia 143 umol/L (18-72) H 08/11/20 11:45 Creatine Kinase 173 U/L (30-200) 08/10/20 10:15 Troponin I 0.043 ng/mL (< 0.028) H 08/11/20 12:57 Serum Total Protein 7.6 g/dL (5.8-8.1) 08/11/20 04:33 Albumin 3.9 g/dL (3.4-4.8) 08/11/20 04:33 Lipase 20 U/L (8-78) 08/10/20 10:15 Urine Ketones Negative mg/dL (Negative) 08/10/20 10:57 Urine Blood Negative (Negative) 08/10/20 10:57 Urine Nitrite Negative (Negative) 08/10/20 10:57 Ur Leukocyte Esterase Negative Elva/uL (Negative) 08/10/20 10:57 - Radiology Interpretation CT scan - head Additional Comment: No acute intracranial pathology PN A/P (1) AMS (altered mental status) Code(s): R41.82 - ALTERED MENTAL STATUS, UNSPECIFIED Status: Acute (2) NSTEMI (non-ST elevated myocardial infarction) Code(s): I21.4 - NON-ST ELEVATION (NSTEMI) MYOCARDIAL INFARCTION Status: Acute (3) Hepatic encephalopathy Code(s): K72.90 - HEPATIC FAILURE, UNSPECIFIED WITHOUT COMA Status: Acute (4) Hyperammonemia Code(s): E72.20 - DISORDER OF UREA CYCLE METABOLISM, UNSPECIFIED Status: Acute - Plan Daily Plan: plan discussed w/ family ( at bedside), PT/OT, speech therapy, DVT proph w/SCDs Mr. Shelton is a 64-year-old male who was consulted for altered mental status. Altered mental status seems to be multifactorial but most likely secondary to hyperammonemia and hepatic encephalopathy. Intracranial process less likely because of negative EEG and head CT. No focal findings on examination EEG completed and reviewed which was negative for her activity. Head CT reviewed which was negative for acute intracranial pathology. Consider MRI brain to to assess acute intracranial process when stable. Neurochecks every 4 hours. Continue home medications. PT/OT/speech. Continue medical management per primary team and cardiology. Plan discussed with the patient and also with the at the bedside.
--- NOTE | 2020-08-11 15:32 | PRG ---
DATE OF SERVICE: 08/11/2020 SUBJECTIVE: Mr. Daniel is awake today. He is still sleepy, but he is oriented x3 and appropriately interactive. He did have loose bowel movements with the lactulose. OBJECTIVE: VITAL SIGNS: Temperature 98.4, pulse 116, blood pressure 145/85. GENERAL: He is in no acute distress. Alert and oriented x3. LUNGS: Clear to auscultation bilaterally. HEART: Tachycardic. S1, S2 without murmur. ABDOMEN: Soft, nontender, and nondistended. Bowel sounds are present. EXTREMITIES: No lower extremity edema. LABORATORY DATA: White blood cell count 11.1, hemoglobin 13.3, platelets 85. Bilirubin 2.4, AST 44, ALT 37, alkaline phosphatase 91, albumin 3.9. IMPRESSION: 1. Cirrhosis of the liver with decompensation with hepatic encephalopathy and elevated bilirubin. Most likely secondary to alcohol. I have requested records regarding prior workup including liver biopsy. 2. Hepatic encephalopathy, now improved with lactulose. He has been started on Xifaxan as well. 3. Crohn disease, stable on Humira. RECOMMENDATIONS: 1. Alcohol cessation. 2. Continue lactulose and titrate to 3 to 4 soft bowel movements per day. 3. If he continues to improve with his mental status, he should be ready to discharge home tomorrow and he can follow up with his primary GI in [place] or if he wishes to establish care, he can change to our office as well. 4. Request prior records regarding his Crohn's and liver disease. 5. Low-salt diet. 6. Monitor for alcohol withdrawal. Job ID: [id number]
--- NOTE | 2020-08-11 23:50 | CON ---
DATE OF CONSULTATION: HISTORY OF PRESENT ILLNESS: The patient is a 64-year-old gentleman, who was admitted with altered mental status and noted to have an elevated troponin level. The patient states that over 10 years ago, he saw Dr. Alexander for cardiac evaluation. He subsequently underwent a cardiac catheterization and he was found to have no significant coronary artery disease. The patient was started on statin therapy which he took for a short period of time. The patient unfortunately subsequently developed cirrhosis. He is followed by a liver specialist in [place]. The patient denies having any altered mental status. The patient denies having any chest discomfort. He denies having any PND or orthopnea. PAST MEDICAL HISTORY: 1. Cirrhosis. 2. Hypertension. 3. Crohn disease. PAST SURGICAL HISTORY: Colon surgery. ALLERGIES: PENICILLIN. MEDICATIONS: 1. Lorazepam 0.5 at bedtime. 2. Lisinopril 20 daily. 3. Amitriptyline 1 tablet at bedtime. 4. Prilosec 40 daily. 5. Carafate 1 g QID 6. Cialis 5 mg p.o. daily. FAMILY HISTORY: There is a positive family history of congestive heart failure. REVIEW OF SYSTEMS: 10-point system otherwise unremarkable. PHYSICAL EXAMINATION: GENERAL: Well-developed gentleman, who is alert and oriented x3. VITAL SIGNS: Blood pressure 151/81. NECK: No jugular venous distention. LUNGS: Clear to auscultation. HEART: Regular rate and rhythm. Normal S1, S2. No murmurs. ABDOMEN: Distended. EXTREMITIES: Showed no edema. VASCULAR: Radial pulse 2+. LABORATORY DATA: Sodium 141, potassium 3.4, chloride 107, bicarbonate 22, BUN 14, creatinine 0.9, glucose 125. His white blood cell count was 11.1, hemoglobin 13.4, hematocrit 40.0, and platelets were 85. Troponin was 0.043. EKG normal sinus rhythm with low voltage QRS, cannot exclude a previous lateral infarct. IMPRESSION: 1. Altered mental status. 2. Indeterminate troponin level. 3. Cirrhosis. 4. Crohn disease. 5. Hypertension. PLAN: This gentleman presented with altered mental status and a markedly elevated ammonia level. The patient was noted to have an indeterminate troponin level. He is asymptomatic. From a cardiac standpoint, we will check his echocardiogram. We will follow this patient with you through his hospitalization. Job ID: [id number] [facility]
[2020-08-12] MEDS ORDERED: Finasteride 5 MG TAB PO SCH (09:00)
[2020-08-12 09:09] VITALS: TEMP 98.1
[2020-08-12] MEDS: Loteprednol Etabonate 0.5% Ophth Suspension 5 ml Bottle EA EYE SCH (09:10)
[2020-08-12] MEDS: Rifaximin 550 MG TAB PO SCH (09:11)
[2020-08-12] MEDS: Sucralfate 1 GM TAB PO SCH ×4 (09:11→12:38)
[2020-08-12] MEDS: Lisinopril 20 MG TAB PO SCH (09:12)
[2020-08-12] MEDS: Multivitamin W/ Minerals 1 TAB PO SCH (09:12)
[2020-08-12] MEDS: Finasteride 5 MG TAB PO SCH (09:12)
[2020-08-12] MEDS: Folic Acid 1 MG TAB PO SCH (09:12)
[2020-08-12] MEDS: prednisoLONE 1% Ophth Susp 5 ml Bottle EA EYE SCH (09:12)
[2020-08-12] MEDS: Thiamine 100 MG TAB PO SCH (09:12)
[2020-08-12] MEDS: Tamsulosin HCl 0.4 MG CAP PO SCH (09:13)
[2020-08-12 11:46] VITALS: BP 131/62
[2020-08-12] MEDS ORDERED: Electrolyte Replacement Protocol 1 EACH FS SCH (12:00)
--- NOTE | 2020-08-12 12:05 | PRG ---
DATE OF SERVICE: 08/12/2020 SUBJECTIVE: Mr. Daniel is awake and alert without complaints. He is tolerating a regular diet. OBJECTIVE: VITAL SIGNS: Temperature is 98.1, pulse is 88 to 106, blood pressure 142/77. GENERAL: He is in no acute distress. He is alert and oriented x3. LUNGS: Clear to auscultation bilaterally. HEART: Tachycardic. S1 and S2. ABDOMEN: Soft, nontender, and nondistended. Bowel sounds are present. EXTREMITIES: No lower extremity edema. LABORATORY DATA: No new labs today. IMPRESSION: 1. Hepatic encephalopathy is improved with lactulose and Xifaxan. He can discharge home on these two medications. He has had three bowel movements yesterday and we can continue the current dosing. The lactulose can be titrated back to maintain three soft stools per day. 2. Cirrhosis likely secondary to alcohol. Decompensated. 3. Crohn disease, which has been stable on Humira. RECOMMENDATIONS: 1. Alcohol cessation. 2. Low-salt diet. 3. Continue lactulose and Xifaxan. 4. He follows with Gastroenterology in [place] and just had upper and lower endoscopy a couple of weeks ago with him. I have requested records. 5. Anticipate he will be ready to discharge home today from a GI perspective and can follow up with his established comber operator. He also called to schedule follow up with our office. 6. I will sign off. Please call if GI can be of assistance. Job ID: [id number]
--- NOTE | 2020-08-12 20:31 | PDOC.DS.DS ---
Provider - Provider Date of Admission: 08/10/20 11:20 Date of Discharge: 08/12/20 Admitting Provider: Nakul Alexandre MD Primary Care Physician: CASSANDRA Mauricio Course - Hospital Course Hospital Course: This is a 64-year-old male patient with a history of cirrhosis, Crohn's disease and hypertension who was admitted on account of altered mental status. He follows a gastroenterology team in [place] who specializes in liver. He had liver cirrhosis however has not been on lactulose. Initial ammonia was noted to be 120. Brain imaging was negative. Neurology was consulted He was admitted and started on lactulose with more than 3 stools on the day prior to discharge. He had come back to baseline and was alert and oriented x4 prior to discharge. He was discharged on lactulose to follow-up with his media relations specialist in [place] Gastroenterology was in consult Resuscitation Status: 08/10/20 11:52 Resuscitation Status Routine Resuscitation Status: FULL: Full Resuscitation - Labs Lab Results: 08/11/20 04:33 08/11/20 04:33 Abnormal Lab Results - Last 48 hrs 08/11/20 04:33: Potassium 3.4 L, Carbon Dioxide 22 L, Total Bilirubin 2.4 H, AST 44 H, Globulin 3.7 H, Albumin/Globulin Ratio 1.1 L 08/11/20 04:33: WBC 11.1 H, Hgb 13.4 L, Hct 40.0 L, RDW 15.6 H, Plt Count 85 L, Lymphocytes % 20.3 L, Neutrophils # 7.7 H, Monocytes # 0.9 H 08/11/20 11:45: Ammonia 143 H 08/11/20 12:57: Troponin I 0.043 H 08/12/20 03:29: Ammonia 110 H - Physical Exam Vitals: Vital Signs (12 hours) Temp Pulse Resp BP Pulse Ox 08/12/20 11:40 87 15 131/62 96 08/12/20 08:50 98.1 F 106 H 16 142/77 H 95 Weight Admit Weight 153 lb Weight 153 lb Physical Exam: The patient was seen and examined on the day of discharge. General: In no acute distress. CVS: S1-S2 present. No murmurs gallops or rubs. Respiratory system: Air entry adequate bilaterally. Abdomen: Full, soft nondistended bowel sounds present. Extremities: No edema. Problem - Discharge Plan Assessment: Hepatic encephalopathy He will continue on rifaximin and lactulose at home. Follow-up with his liver specialist in [place]. He was advised to adjust lactulose dose to 3-4 stools per dayhis was also given treatment. Liver cirrhosis Follow-up with liver specialist for further management. Plan - Discharge Medications Prescriptions: Lactulose 20 gm PO QID #120 udcup Rifaximin [Xifaxan] 550 mg PO BID #60 tablet Home Medications: Medication Instructions Recorded Confirmed Type Lisinopril 20 mg PO DAILY 08/04/16 08/10/20 History Amitriptyline HCl 1 tab PO HS 08/13/18 08/10/20 History Finasteride [Proscar] 5 mg PO DAILY 08/13/18 08/10/20 History LORazepam [Lorazepam] 0.5 mg PO HS 08/13/18 08/10/20 History Loperamide HCl [Loperamide] 2 tab PO TID PRN 08/13/18 08/10/20 History Loteprednol Etabonate [Lotemax 1 drop EA EYE DAILY 08/13/18 08/10/20 History 0.5% Ophth Suspension] Tamsulosin HCl [Flomax] 0.4 mg PO DAILY 08/13/18 08/10/20 History Adalimumab [Humira] 40 mg SC Q7D 08/10/20 08/10/20 History Cyanocobalamin (Vitamin B-12) 1,000 mcg IM Q30D 08/10/20 08/10/20 History [Cyanocobalamin Injection] Fluorometholone [FML 0.1% Ophth 1 drop EA EYE DAILY 08/10/20 08/10/20 History Susp] Omeprazole 40 mg PO DAILY 08/10/20 08/10/20 History Prednisolone Acetate/Pf 1 drop EA EYE DAILY 08/10/20 08/10/20 History [Prednisolone Acet 1% Eye Drop] Promethazine [Phenergan] 12.5 mg PO Q6HR PRN 08/10/20 08/10/20 History SUMAtriptan Succinate [Imitrex] 100 mg PO DAILY PRN 08/10/20 08/10/20 History Sucralfate [Carafate] 1 gm PO ACHS 08/10/20 08/10/20 History Tadalafil 5 mg PO DAILY 08/10/20 08/10/20 History Tadalafil [Cialis] 20 mg PO DAILY PRN 08/10/20 08/10/20 History traMADol HCl [Tramadol HCl] 50 mg PO Q6H PRN 08/10/20 08/10/20 History Lactulose 20 gm PO QID #120 udcup 08/12/20 Rx Rifaximin [Xifaxan] 550 mg PO BID #60 tablet 08/12/20 Rx Allergies: Penicillins Allergy (Verified 08/10/20 16:48) per spouse - Discharge Instructions Discharge Instructions:: Follow up with your gastroenterologists in [place] Activity:: Activity as Tolerated - Follow up Plan Referrals: Clarisa Holt FNP [Primary Care Provider] - 7 Days (call and schedule appt to see Clarisa Holt next week. ) Ramesh Dawn MD [Active] - (Dr Dawn was the media relations specialist that saw you while in the hospital. Schedule follow up appt with your media relations specialist in [place]. ) Albin Clark MD [Active] - (Dr Clark was the car supervisor that saw you while you in the hospital. ) Disposition: HOME Quality - Care Measures CORE MEASURES:: N/A
--- NOTE | 2020-08-15 03:49 | PQF ---
CLINICAL DOCUMENTATION CLARIFICATION FORM: Dear : Jg Dennis Date / Time: 08/15/20 034 Please exercise your independent, professional judgment in responding to the clarification form. Clinical indicators are provided on the bottom of this form for your review In your clinical opinion based on clinical findings below, can you please specify Hepatic Encephalopathy if: Please check appropriate box(es): [ x ] Acute Alcoholic Hepatic Encephalopathy [ ] Acute Hepatic Encephalopathy not related to alcohol [ ] Other diagnosis, please specify [ ] Unable to determine Physician Signature: ERIKA Date/Time:08/17/2020 For continuity of documentation, please document condition throughout progress notes and discharge summary. Thank You. To be completed by CDI/Coding staff for physician review: Present Clinical Indicators - Signs / Symptoms / Labs Results and Location in Medical Record [X] Plasma Alcohol: less than 10, Ammonia 120;143 Laboratory 08/10 [X] BP 180/105, Pulse 98, Resp 22, Temp 98.9 Vital sins 08/10 [X] Altered mental status H&P p1 08/10 Dr Adams [X] Acute hepatic encephalopathy with elevated ammonia level H&P p3 08/10 Dr Adams [X] Acute metabolic encephalopathy, likely hepatic in origin H&P p3 08/10 Dr Adams [X] Cirrhosis of liver most likley secondary to alcohol Consult Dr Dawn 08/10 Present Risk Factors Results and Location in Medical Record [X] 64 year-old Male H&P p1 08/10 Dr Adams [X] Crohn Disease H&P p1 08/10 Dr Adams [X] Liver cirrhosis H&P p1 08/10 Dr Adams [X] HTN H&P p1 08/10 Dr Adams Present Treatments Results and Location in Medical Record [X] Thiamine HCL 100 mg oral NOV 17 [X] IV NS 1L NOV 17 [X] Lactulose 20 gm oral NOV 17 [X] GE consult Consult Dr Dawn 08/10 [X] Neuro consult Consult Dr Mir 08/11 [facility] Signature: Bina Dwyerbarb Phone #: ext [phone] Date/Time: 08/15/2020 0608 This is a permanent part of the Medical Record [facility]
[2020-08-17] MEDS ORDERED: ADALIMUMAB 40 MG SC SCH (09:00)
== END 2020-08-12 16:48 | disposition home or self-care (01) | DRG 432 ==
LOC: ERS 09:42 → ERHOLD 11:20 → 2NO 14:59
PROVIDERS: ADMIT Internal Medicine; ATTEND Internal Medicine
DX: K70.40 Alcoholic hepatic failure without coma (principal); G93.41 Metabolic encephalopathy; I21.A1 Myocardial infarction type 2; K51.90 Ulcerative colitis, unspecified, without complications; K76.6 Portal hypertension; K70.30 Alcoholic cirrhosis of liver without ascites; Z20.828 Contact with and (suspected) exposure to other viral communicable diseases; I10 Essential (primary) hypertension; Z90.49 Acquired absence of other specified parts of digestive tract; Z88.0 Allergy status to penicillin; Z79.899 Other long term (current) drug therapy; Z85.828 Personal history of other malignant neoplasm of skin
CPT/HCPCS: 36415; 51701; 70450; 71045; 80053; 80306; 80307; 81003; 82140; 82550; 83690; 84484; 85025; 87635; 93005; 93306; 95712; 95819; 95957; 96374; J0360; J2060; U0003

== ENCOUNTER 2020-11-27 14:36 | Inpatient (IN) | payer BC ==
[~2020-11-27 14:36] MED LIST changes: -Bacitracin Zinc Ointment 30 gm TUBE ONE; -Betamet Acet/Betamet Na Ph 30 MG/5 ML VIAL ONE; -Bupivacaine PF 0.5% 30 ML VIAL ONE; -Clindamycin/D5W 600 mg/50 ml Premix Bag ONE; -Dexamethasone 20 MG/5 ML VIAL ONE; -Fentanyl 250 MCG/5 ML VIAL ONE; -HYDROcodone/Acetaminophen 5/325 mg Tablet ONE; +Iopamidol-370 76% 500 ML 1 ML ONE; -Lidocaine 1% PF 5 ML VIAL ONE; -Midazolam HCl 2 mg/2 ml Vial ONE; -PROPOFOL 200 MG/20 ML VIAL ONE; -Sodium Chloride 0.9% 10 ML ONE
[2020-11-27 16:11] LABS: ALT (SGPT) 26 U/L (8-55); AST (SGOT) 39 U/L (5-34); Alkaline Phosphatase 131 U/L (40-110); Anion Gap 16 mmol/L (10-20); BUN (Urea Nitrogen) 9 mg/dL (8.4-25.7); Bilirubin, Total 1.1 mg/dL (0.2-1.2); Calc. Creatinine Clearance 0 mL/min (70-130); Calcium 8.9 mg/dL (7.8-10.44); Carbon Dioxide 20 mmol/L (23-31); Chloride 105 mmol/L (98-107); Globulin 3.8 g/dL (2.4-3.5); Glucose 143 mg/dL (80-115); Lipase 26 U/L (8-78); Potassium 3.9 mmol/L (3.5-5.1); Protein, Total 7.8 g/dL (5.8-8.1); Sodium 137 mmol/L (136-145)
[2020-11-27 16:22] LABS: #Eosinphils 0.1 thou/uL (0.0-0.7); #Lymphocytes 1.3 thou/uL (1.20-3.40); #Monocytes 0.5 thou/uL (0.11-0.59); %Basophils 0.6 % (0.0-1.0); %Eosinophils 1.3 % (0.0-10.0); %Lymphocytes 18.2 % (21.0-51.0); %Monocytes 7.9 % (0.0-10.0); %Neutrophils 72.1 % (42.0-75.0); Hemoglobin 10.6 g/dL (14.0-18.0); Hypochromia MODERATE=16-30 cells (100X) (0-5/hpf); MDiff Complete? YES; Mean Corpuscular HGB CONC 31.5 g/dL (32.0-36.0); Mean Corpuscular Hemoglobin 22.2 pg (27.0-31.0); Mean Corpuscular Volume 70.4 fL (78.0-98.0); Mean Platelet Volume 7.4 fL (7.4-10.4); Microcytosis MODERATE=15-30 cells (100X) (0-5/hpf); Platelet Count 81 thou/uL (130-400); Platelet Morphology Comment Appears Decreased; Polychromasia SLIGHT = 2-3 cells (100X) (0-2/hpf); RBC Distribution Width 15.9 % (11.5-14.5); Red Blood Cell (RBC) Count 4.78 mill/uL (4.70-6.10); White Blood Cell (WBC) Count 6.9 thou/uL (4.8-10.8)
[2020-11-27] MEDS ORDERED: Ondansetron PF 4 MG/2 ML Vial ONE (16:43)
[2020-11-27] MEDS ORDERED: Morphine 10 MG/ML VIAL ONE (16:43)
[2020-11-27] MEDS ORDERED: Morphine 4 MG/ML VIAL SLOW IVP PRN (19:46)
[2020-11-27] MEDS ORDERED: Ondansetron PF 4 MG/2 ML Vial IVP PRN (20:00)
[2020-11-27] MEDS ORDERED: Ondansetron ODT 4 MG TAB SL PRN (20:00)
[2020-11-27] MEDS ORDERED: Acetaminophen 325 MG TAB PO PRN (20:00)
[2020-11-27 20:29] VITALS: BMI 25.9
[2020-11-27] MEDS: Sodium Chloride 0.9% 1,000 ML IV SCH (20:38)
[2020-11-27] MEDS: D5 1/2 NS w/20 mEq KCL 1,000 ML IV SCH (20:38)
[2020-11-28] MEDS: Morphine 4 MG/ML VIAL SLOW IVP PRN ×3 (01:35→09:52)
[2020-11-28] MEDS: Sodium Chloride 0.9% 1,000 ML IV SCH ×2 (01:36→10:05)
[2020-11-28 04:20] LABS: SARS-CoV-2 PCR by NAA Not Detected (NotDetected)
[2020-11-28] MEDS: D5 1/2 NS w/20 mEq KCL 1,000 ML IV SCH (04:33)
[2020-11-28 06:02] LABS: #Basophils 0.1 thou/uL (0.0-0.2); #Eosinphils 0.3 thou/uL (0.0-0.7); #Lymphocytes 1.8 thou/uL (1.20-3.40); #Monocytes 0.7 thou/uL (0.11-0.59); #Neutrophils 5.2 thou/uL (1.40-6.50); %Basophils 0.9 % (0.0-1.0); %Eosinophils 3.4 % (0.0-10.0); %Lymphocytes 22.8 % (21.0-51.0); %Monocytes 8.4 % (0.0-10.0); %Neutrophils 64.5 % (42.0-75.0); Mean Corpuscular Hemoglobin 21.7 pg (27.0-31.0); Mean Platelet Volume 6.4 fL (7.4-10.4); Platelet Count 61 thou/uL (130-400); RBC Distribution Width 15.8 % (11.5-14.5); Red Blood Cell (RBC) Count 4.17 mill/uL (4.70-6.10); White Blood Cell (WBC) Count 8.1 thou/uL (4.8-10.8)
[2020-11-28 06:19] LABS: Anion Gap 13 mmol/L (10-20); BUN (Urea Nitrogen) 13 mg/dL (8.4-25.7); Calc. Creatinine Clearance 80 mL/min (70-130); Carbon Dioxide 22 mmol/L (23-31); Chloride 107 mmol/L (98-107); Glucose 112 mg/dL (80-115); Potassium 3.8 mmol/L (3.5-5.1); Sodium 138 mmol/L (136-145)
[2020-11-28] MEDS ORDERED: MD-Gastroview 120 ML BOT ONE (08:58)
[2020-11-28] MEDS: Pantoprazole 40 MG VIAL IVP SCH ×2 (09:53→21:32)
[2020-11-28] MEDS ORDERED: traMADol HCl 50 MG TAB PO PRN (15:20)
[2020-11-28] MEDS ORDERED: Cyclobenzaprine 10 MG TAB PO PRN ×2 (15:21→19:29)
[2020-11-28] MEDS ORDERED: hydrALAZINE 20 MG/ML VIAL SLOW IVP PRN (18:44)
[2020-11-28] MEDS ORDERED: Lisinopril 20 MG TAB PO SCH (21:00)
[2020-11-28] MEDS ORDERED: Lorazepam 0.5 MG TAB PO SCH (21:00)
[2020-11-28] MEDS ORDERED: Amitriptyline HCl 25 MG TAB PO SCH (21:00)
[2020-11-28] MEDS ORDERED: Enoxaparin Sodium 40 MG/0.4 ML SYRINGE SC SCH (21:00)
[2020-11-28] MEDS: Rifaximin 550 MG TAB PO SCH (21:29)
[2020-11-29] MEDS ORDERED: prednisoLONE 1% Ophth Susp 5 ml Bottle EA EYE SCH (09:00)
[2020-11-29] MEDS ORDERED: Tamsulosin HCl 0.4 MG CAP PO SCH (09:00)
[2020-11-29] MEDS ORDERED: Finasteride 5 MG TAB PO SCH (09:00)
[2020-11-29] MEDS: Rifaximin 550 MG TAB PO SCH (10:15)
[2020-11-29] MEDS: Pantoprazole 40 MG VIAL IVP SCH (10:16)
[2020-11-29 14:55] VITALS: BP 148/55; TEMP 98.3
== END 2020-11-29 15:07 | disposition home or self-care (01) | DRG 386 ==
LOC: ERS 14:36 → T4-A 18:05
PROVIDERS: ADMIT Internal Medicine; ATTEND Internal Medicine
DX: K50.012 Crohn's disease of small intestine with intestinal obstruction (principal); K76.6 Portal hypertension; D50.9 Iron deficiency anemia, unspecified; D69.6 Thrombocytopenia, unspecified; Z20.822 Contact with and (suspected) exposure to COVID-19; K74.60 Unspecified cirrhosis of liver; E78.5 Hyperlipidemia, unspecified; K76.0 Fatty (change of) liver, not elsewhere classified; K40.90 Unilateral inguinal hernia, without obstruction or gangrene, not specified as recurrent; N18.2 Chronic kidney disease, stage 2 (mild); I12.9 Hypertensive chronic kidney disease with stage 1 through stage 4 chronic kidney disease, or unspecified chronic kidney disease; Z85.828 Personal history of other malignant neoplasm of skin; Z90.49 Acquired absence of other specified parts of digestive tract; Z88.0 Allergy status to penicillin; Z79.899 Other long term (current) drug therapy
CPT/HCPCS: 36415; 74018; 74019; 74177; 74250; 80048; 80053; 83690; 85025; 87635; 96374; 96375; C9113; J2270; J2405; Q9963; Q9967; U0003; U0005

== ENCOUNTER 2020-12-08 03:48 | Inpatient (IN) | payer BC ==
[2020-12-08] MEDS ORDERED: Morphine 4 MG/ML VIAL ONE ×3 (04:19→11:42)
[2020-12-08] MEDS ORDERED: Ondansetron PF 4 MG/2 ML Vial ONE (04:19)
[2020-12-08 04:34] LABS: #Eosinphils 0.1 thou/uL (0.0-0.7); #Lymphocytes 0.8 thou/uL (1.20-3.40); #Monocytes 0.3 thou/uL (0.11-0.59); #Neutrophils 3.4 thou/uL (1.40-6.50); %Basophils 0.6 % (0.0-1.0); %Eosinophils 1.9 % (0.0-10.0); %Lymphocytes 16.9 % (21.0-51.0); %Monocytes 6.8 % (0.0-10.0); %Neutrophils 73.8 % (42.0-75.0); Hemoglobin 9.1 g/dL (14.0-18.0); Mean Corpuscular HGB CONC 31.1 g/dL (32.0-36.0); Mean Corpuscular Hemoglobin 21.3 pg (27.0-31.0); Mean Corpuscular Volume 68.5 fL (78.0-98.0); Mean Platelet Volume 8.2 fL (7.4-10.4); Platelet Count 57 thou/uL (130-400); RBC Distribution Width 15.6 % (11.5-14.5); Red Blood Cell (RBC) Count 4.29 mill/uL (4.70-6.10); White Blood Cell (WBC) Count 4.6 thou/uL (4.8-10.8)
[2020-12-08 04:47] LABS: ALT (SGPT) 25 U/L (8-55); AST (SGOT) 39 U/L (5-34); Albumin 3.9 g/dL (3.4-4.8); Alkaline Phosphatase 115 U/L (40-110); Anion Gap 14 mmol/L (10-20); BUN (Urea Nitrogen) 7 mg/dL (8.4-25.7); Bilirubin, Total 0.8 mg/dL (0.2-1.2); Calc. Creatinine Clearance 0 mL/min (70-130); Calcium 8.9 mg/dL (7.8-10.44); Carbon Dioxide 22 mmol/L (23-31); Chloride 106 mmol/L (98-107); Globulin 3.5 g/dL (2.4-3.5); Glucose 172 mg/dL (80-115); Lipase 29 U/L (8-78); Potassium 4.2 mmol/L (3.5-5.1); Protein, Total 7.4 g/dL (5.8-8.1); Sodium 138 mmol/L (136-145)
[2020-12-08 05:29] LABS: Bilirubin Negative (Negative); Blood, Urine Negative (Negative); Clarity Clear (Clear); Glucose, Urine (Dipstick) Normal (Negative); Ketone, Urine Negative (Negative); Leukocyte Negative Leu/uL (Negative); Nitrite Negative (Negative); Protein, Urine (Dipstick) Negative (Neg-Trace); Specific Gravity, Urine 1.033 (1.002-1.036); Urobilinogen Normal mg/dL (Less than 2); pH, Urine 6.5 (5.0-9.0)
[2020-12-08] MEDS ORDERED: Ketorolac Tromethamine 30 MG/ML VIAL ONE (05:47)
[2020-12-08] MEDS: Dextrose 5 % And 0.9 % NaCl 1,000 ML IV SCH ×2 (08:31→17:46)
[2020-12-08] MEDS: Morphine 4 MG/ML VIAL SLOW IVP PRN ×3 (12:04→20:47)
[2020-12-08] MEDS ORDERED: Iopamidol-370 76% 500 ML 1 ML ONE (13:24)
[2020-12-08 13:37] LABS: SARS-CoV-2 PCR by NAA Not Detected (NotDetected)
[2020-12-08 15:12] VITALS: BMI 25.8
[2020-12-08] MEDS: Ondansetron PF 4 MG/2 ML Vial IVP PRN (20:58)
[2020-12-09] MEDS: Morphine 4 MG/ML VIAL SLOW IVP PRN ×5 (01:10→23:22)
[2020-12-09] MEDS: Dextrose 5 %-0.45 % NaCl 1,000 ML IV SCH ×2 (01:11→17:19)
[2020-12-09 05:13] LABS: #Basophils 0.1 thou/uL (0.0-0.2); #Eosinphils 0.3 thou/uL (0.0-0.7); #Lymphocytes 1.4 thou/uL (1.20-3.40); #Monocytes 0.7 thou/uL (0.11-0.59); #Neutrophils 3.9 thou/uL (1.40-6.50); %Basophils 1.5 % (0.0-1.0); %Eosinophils 4.3 % (0.0-10.0); %Lymphocytes 21.6 % (21.0-51.0); %Monocytes 11.2 % (0.0-10.0); %Neutrophils 61.5 % (42.0-75.0); Hemoglobin 8.6 g/dL (14.0-18.0); Mean Corpuscular HGB CONC 30.1 g/dL (32.0-36.0); Mean Corpuscular Hemoglobin 20.8 pg (27.0-31.0); Mean Corpuscular Volume 69.3 fL (78.0-98.0); Mean Platelet Volume 10.3 fL (7.4-10.4); Platelet Count 54 thou/uL (130-400); RBC Distribution Width 15.8 % (11.5-14.5); Red Blood Cell (RBC) Count 4.11 mill/uL (4.70-6.10); White Blood Cell (WBC) Count 6.3 thou/uL (4.8-10.8)
[2020-12-09 05:35] LABS: Anion Gap 11 mmol/L (10-20); BUN (Urea Nitrogen) 11 mg/dL (8.4-25.7); Calc. Creatinine Clearance 88 mL/min (70-130); Calcium 7.9 mg/dL (7.8-10.44); Carbon Dioxide 22 mmol/L (23-31); Chloride 108 mmol/L (98-107); Glucose 120 mg/dL (80-115); Sodium 137 mmol/L (136-145)
[2020-12-09] MEDS ORDERED: traMADol HCl 50 MG TAB PO PRN (14:45)
[2020-12-09] MEDS: Ondansetron PF 4 MG/2 ML Vial IVP PRN (18:20)
[2020-12-09] MEDS ORDERED: Lisinopril 20 MG TAB PO SCH (21:00)
[2020-12-09] MEDS ORDERED: Amitriptyline HCl 25 MG TAB PO SCH (21:00)
[2020-12-10] MEDS: traMADol HCl 50 MG TAB PO PRN ×2 (04:29→12:17)
[2020-12-10 05:07] LABS: #Eosinphils 0.3 thou/uL (0.0-0.7); #Lymphocytes 1.2 thou/uL (1.20-3.40); #Monocytes 0.6 thou/uL (0.11-0.59); #Neutrophils 2.5 thou/uL (1.40-6.50); %Basophils 0.9 % (0.0-1.0); %Eosinophils 5.5 % (0.0-10.0); %Lymphocytes 26.9 % (21.0-51.0); %Neutrophils 54.7 % (42.0-75.0); Hemoglobin 8.1 g/dL (14.0-18.0); Mean Corpuscular HGB CONC 30.8 g/dL (32.0-36.0); Mean Corpuscular Hemoglobin 21.3 pg (27.0-31.0); Mean Corpuscular Volume 69.1 fL (78.0-98.0); Mean Platelet Volume 9.2 fL (7.4-10.4); Platelet Count 44 thou/uL (130-400); RBC Distribution Width 15.5 % (11.5-14.5); Red Blood Cell (RBC) Count 3.79 mill/uL (4.70-6.10); White Blood Cell (WBC) Count 4.6 thou/uL (4.8-10.8)
[2020-12-10 05:24] LABS: Anion Gap 7 mmol/L (10-20); BUN (Urea Nitrogen) 8 mg/dL (8.4-25.7); Calc. Creatinine Clearance 87 mL/min (70-130); Calcium 7.5 mg/dL (7.8-10.44); Carbon Dioxide 28 mmol/L (23-31); Chloride 106 mmol/L (98-107); Glucose 114 mg/dL (80-115); Potassium 3.4 mmol/L (3.5-5.1); Sodium 138 mmol/L (136-145)
[2020-12-10] MEDS ORDERED: Tamsulosin HCl 0.4 MG CAP PO SCH (09:00)
[2020-12-10] MEDS ORDERED: Finasteride 5 MG TAB PO SCH (09:00)
[2020-12-10 11:49] VITALS: TEMP 98.2
[2020-12-10] MEDS: Dextrose 5 %-0.45 % NaCl 1,000 ML IV SCH (14:26)
[2020-12-10 15:38] VITALS: BP 133/69
== END 2020-12-10 15:58 | disposition home or self-care (01) | DRG 385 ==
LOC: ERS 03:48 → ERHOLD 06:37 → SURG A 14:09
PROVIDERS: ADMIT Student in an Organized Health Care Education/Training Program; ATTEND Internal Medicine
DX: K50.012 Crohn's disease of small intestine with intestinal obstruction (principal); J69.0 Pneumonitis due to inhalation of food and vomit; D61.818 Other pancytopenia; E78.5 Hyperlipidemia, unspecified; K70.30 Alcoholic cirrhosis of liver without ascites; D64.9 Anemia, unspecified; D69.6 Thrombocytopenia, unspecified; D50.9 Iron deficiency anemia, unspecified; I10 Essential (primary) hypertension; Z20.822 Contact with and (suspected) exposure to COVID-19; N40.0 Benign prostatic hyperplasia without lower urinary tract symptoms; Z88.0 Allergy status to penicillin; Z85.828 Personal history of other malignant neoplasm of skin
CPT/HCPCS: 36415; 71046; 74018; 74022; 74177; 74250; 80048; 80053; 81003; 83605; 83690; 84484; 85025; 87070; 87077; 87186; 87205; 87635; 93005; 93306; 94760; 96374; 96375; J1885; J2270; J2405; Q9967; U0003; U0005

== ENCOUNTER 2020-12-11 09:08 | Outpatient (CLI) | payer BC | END 2020-12-11 09:09 | disposition home or self-care (01) | LOC: RAD-FRANK 09:08 | PROVIDERS: ATTEND Nurse Practitioner Family | DX: R05 Cough (principal); R91.8 Other nonspecific abnormal finding of lung field | CPT/HCPCS: 71046 ==

== ENCOUNTER 2021-02-26 10:36 | Outpatient (CLI) | payer BC | END 2021-02-26 10:37 | disposition home or self-care (01) | LOC: BICRAD 10:36 | PROVIDERS: ATTEND Internal Medicine Pulmonary Disease | DX: R06.00 Dyspnea, unspecified (principal) | CPT/HCPCS: 71046 ==

== ENCOUNTER 2021-07-03 15:44 | Inpatient (IN) | payer BC ==
[2021-07-03 17:26] LABS: #Basophils 0.1 thou/uL (0.0-0.2); #Eosinphils 0.2 thou/uL (0.0-0.7); #Lymphocytes 1.2 thou/uL (1.20-3.40); #Monocytes 0.6 thou/uL (0.11-0.59); #Neutrophils 2.9 thou/uL (1.40-6.50); %Basophils 1.7 % (0.0-1.0); %Eosinophils 3.3 % (0.0-10.0); %Lymphocytes 23.5 % (21.0-51.0); %Monocytes 12.6 % (0.0-10.0); %Neutrophils 58.9 % (42.0-75.0); Hemoglobin 14.1 g/dL (14.0-18.0); Mean Corpuscular HGB CONC 33.7 g/dL (32.0-36.0); Mean Corpuscular Hemoglobin 28.2 pg (27.0-31.0); Mean Corpuscular Volume 83.7 fL (78.0-98.0); Mean Platelet Volume 10.8 fL (7.4-10.4); Platelet Count 65 thou/uL (130-400); RBC Distribution Width 15.5 % (11.5-14.5); Red Blood Cell (RBC) Count 4.98 mill/uL (4.70-6.10)
[2021-07-03 17:44] LABS: ALT (SGPT) 31 U/L (8-55); AST (SGOT) 39 U/L (5-34); Albumin 2.8 g/dL (3.4-4.8); Alkaline Phosphatase 90 U/L (40-110); Anion Gap 10 mmol/L (10-20); BUN (Urea Nitrogen) 8 mg/dL (8.4-25.7); Bilirubin, Total 1.2 mg/dL (0.2-1.2); Calc. Creatinine Clearance 0 mL/min (70-130); Calcium 7.6 mg/dL (7.8-10.44); Carbon Dioxide 21 mmol/L (23-31); Chloride 111 mmol/L (98-107); Glucose 98 mg/dL (80-115); Protein, Total 5.8 g/dL (5.8-8.1); Sodium 139 mmol/L (136-145)
[2021-07-03 17:48] LABS: Potassium 2.7 mmol/L (3.5-5.1)
[2021-07-03] MEDS ORDERED: Rifaximin 550 MG TAB PO SCH (18:15)
[2021-07-03] MEDS ORDERED: Potassium Chloride 20 MEQ TAB ONE (18:40)
[2021-07-03] MEDS ORDERED: Magnesium 2 GM/50 ML BAG (IN WATER) ONE (18:40)
[2021-07-03] MEDS ORDERED: Potassium Chloride 40 MEQ in Sodium Chloride 0.9% 250 ML 250 ML IVPB SCH (19:00)
[2021-07-03 19:29] LABS: INR-International Normal Ratio 1.4; Prothrombin Time 17.1 sec (12.0-14.7)
[2021-07-03 19:47] LABS: Magnesium 1.7 mg/dL (1.6-2.6)
[2021-07-03] MEDS ORDERED: Acetaminophen 325 MG TAB PO PRN (20:50)
[2021-07-03] MEDS ORDERED: Ondansetron ODT 4 MG TAB PO PRN (20:50)
[2021-07-03] MEDS ORDERED: Ondansetron PF 4 MG/2 ML Vial IVP PRN (20:50)
[2021-07-03] MEDS ORDERED: Acetaminophen 650 MG Suppository PR PRN (20:50)
[2021-07-03] MEDS ORDERED: cefTRIAXone\\ROCEPHIN 1 GM VIAL ONE (21:41)
[2021-07-03] MEDS: cefTRIAXone\\ROCEPHIN 1 GM in Sodium Chloride 0.9% 100 ML IVPB SCH (22:04)
[2021-07-03 22:12] LABS: SARS-CoV-2 NAA Rapid Test Not Detected (NotDetected)
[2021-07-03] MEDS ORDERED: metroNIDAZOLE 500 MG/100 ML BAG ONE (23:41)
[2021-07-03 23:51] LABS: Bacteria/HPF None Seen HPF (None Seen); Bilirubin Negative (Negative); Blood, Urine Negative (Negative); Clarity Clear (Clear); Glucose, Urine (Dipstick) Normal (Negative); Ketone, Urine Trace mg/dL (Negative); Leukocyte Negative Leu/uL (Negative); Nitrite Negative (Negative); Protein, Urine (Dipstick) Negative (Neg-Trace); RBC/HPF 0-3 HPF (0-3); Squamous Epithelial 0-3 HPF (0-3); Urobilinogen Normal mg/dL (Less than 2); WBC/HPF 0-3 HPF (0-3)
[2021-07-03 23:52] LABS: Specific Gravity, Urine 1.058 (1.002-1.036)
[2021-07-03 23:54] LABS: Urine Culture Reflex No No
[2021-07-03] MEDS: metroNIDAZOLE 500 MG in Premix Bag 1 BAG IVPB SCH (23:57)
[2021-07-04] MEDS ORDERED: Acetaminophen 325 MG TAB ONE (01:10)
[2021-07-04 05:18] LABS: #Basophils 0.1 thou/uL (0.0-0.2); #Eosinphils 0.1 thou/uL (0.0-0.7); #Monocytes 0.6 thou/uL (0.11-0.59); #Neutrophils 2.9 thou/uL (1.40-6.50); %Basophils 1.4 % (0.0-1.0); %Eosinophils 2.2 % (0.0-10.0); %Lymphocytes 21.5 % (21.0-51.0); %Monocytes 12.1 % (0.0-10.0); %Neutrophils 62.9 % (42.0-75.0); Hemoglobin 13.1 g/dL (14.0-18.0); Mean Corpuscular HGB CONC 33.8 g/dL (32.0-36.0); Mean Corpuscular Hemoglobin 28.8 pg (27.0-31.0); Mean Corpuscular Volume 85.3 fL (78.0-98.0); Mean Platelet Volume 11.5 fL (7.4-10.4); Platelet Count 52 thou/uL (130-400); RBC Distribution Width 15.2 % (11.5-14.5); Red Blood Cell (RBC) Count 4.53 mill/uL (4.70-6.10); White Blood Cell (WBC) Count 4.6 thou/uL (4.8-10.8)
[2021-07-04] MEDS: metroNIDAZOLE 500 MG in Premix Bag 1 BAG IVPB SCH ×3 (06:38→21:18)
[2021-07-04 07:16] VITALS: BMI 25.0
[2021-07-04 10:15] LABS: Anion Gap 11 mmol/L (10-20); BUN (Urea Nitrogen) 8 mg/dL (8.4-25.7); Calc. Creatinine Clearance 90 mL/min (70-130); Calcium 8.8 mg/dL (7.8-10.44); Carbon Dioxide 23 mmol/L (23-31); Chloride 109 mmol/L (98-107); Glucose 112 mg/dL (80-115); Magnesium 1.9 mg/dL (1.6-2.6); Potassium 3.9 mmol/L (3.5-5.1); Sodium 139 mmol/L (136-145)
[2021-07-04] MEDS ORDERED: FLU VACC QS2021-22(6MOS UP)/PF 60 MCG/0.5 ML SYRINGE IM ONE (16:00)
[2021-07-04] MEDS: cefTRIAXone\\ROCEPHIN 1 GM in Sodium Chloride 0.9% 100 ML IVPB SCH (20:00)
[2021-07-05] MEDS: metroNIDAZOLE 500 MG in Premix Bag 1 BAG IVPB SCH (05:17)
[2021-07-05 12:44] VITALS: BP 150/70; TEMP 98
== END 2021-07-05 13:18 | disposition home or self-care (01) | DRG 442 ==
LOC: ERS 15:44 → ERHOLD 19:26 → 2SW 07-04 06:54
PROVIDERS: ADMIT Student in an Organized Health Care Education/Training Program; ATTEND Hospitalist
DX: K72.00 Acute and subacute hepatic failure without coma (principal); K50.90 Crohn's disease, unspecified, without complications; K76.6 Portal hypertension; Z20.822 Contact with and (suspected) exposure to COVID-19; K74.60 Unspecified cirrhosis of liver; I10 Essential (primary) hypertension; E87.6 Hypokalemia; Z88.0 Allergy status to penicillin; Z76.82 Awaiting organ transplant status; Z85.828 Personal history of other malignant neoplasm of skin; Z79.899 Other long term (current) drug therapy
CPT/HCPCS: 36415; 74177; 80048; 80053; 81001; 82140; 83735; 85025; 85610; 85730; 87040; 93005; 96365; J0696; J3475; J3480; J3490; J7050; Q0162; Q9967; U0002